=== PATIENT | female | born 1990 | race Caucasian/White ===

== ENCOUNTER 2016-04-15 13:31 | Emergency (ER) | payer OTHER ==
[~2016-04-15] VITALS: Ht 165.1 cm; Wt 99.0 kg
[~2016-04-15 13:31] MED LIST: Ambien PO; COLACE100 MG PO; ENDOCET 5-3251 EACH PO; Feosol PO; GAS-X80 MG PO; IBUPROFEN800 MG PO; IRON 100 PLUS1 EACH PO; IRON325 M1 PO; MILK OF MAGN PO; MOBIC7.5 MG PO; MOTRIN800 MG PO; Motrin PO; NOHOMEMEDS; Natalcare Rx,Pramile PO; PERCOCET 5/31 TABLET PO; PRENATAL TABLE1 EACH PO; Percocet 5/325,Endoc PO; ROCEPHIN 2 GM VI2 GM IV; TUMS500 MG PO; TYLENOL EXTRA500 MG PO; ZANTAC75 M1 PO; ZOLOFT50 MG PO; Zoloft PO
[2016-04-15 17:01] VITALS: BP 167/119
== END 2016-04-15 17:14 | disposition home or self-care (01) ==
LOC: EME 13:31
DX: B30.9 Viral conjunctivitis, unspecified (principal)
CPT/HCPCS: 99281; 99283